=== PATIENT | male | born 1960 | race Caucasian/White ===

== ENCOUNTER 2018-05-07 01:36 | Emergency (ER) | payer OTHER ==
--- NOTE | 2018-05-07 02:53 | EDPHYS ---
Physician Documentation [facility] Name: Trace Chris Jr Age: 58 yrs Sex: Male : 1960 Arrival Date: 05/07/2018 Time: 01:49 Bed 20 Private MD: ED Physician Roshan Peralta HPI: 05/07 02:55 This 58 yrs old Male presents to ER via Ambulatory with complaints of cp Toothache. 02:55 The patient presents with pain. The problem is located in the right upper jaw. Onset: cp The symptoms/episode began/occurred gradually. Duration: The symptoms are continuous, and are steadily getting worse. 02:55 Associated signs and symptoms: Pertinent positives: nausea, pain, Pertinent negatives: cp anorexia, chills, fever, inability to eat, vomiting. 02:55 Severity of symptoms: in the emergency department the symptoms are unchanged, despite cp home interventions. Historical: - Allergies: 02:06 No Known Allergies; aa1 - Home Meds: 02:06 None [Active]; aa1 - PMHx: 02:06 None; aa1 - PSHx: 02:06 back sx; aa1 - Immunization history:: Flu vaccine is up to date. - Social history:: Smoking status: Patient uses tobacco products, smokes one-half pack cigarettes per day. - Ebola Screening: : No symptoms or risks identified at this time. ROS: 02:55 Constitutional: Negative for body aches, chills, fever, poor PO intake. cp 02:55 Eyes: Negative for injury, pain, redness, and discharge. cp 02:55 ENT: Positive for dental pain, right upper jaw pain, Negative for ear pain, rhinorrhea, sinus pain, sore throat, difficulty swallowing, difficulty handling secretions, hoarseness. 02:55 Neck: Negative for pain with movement, pain at rest, stiffness, tenderness. 02:55 Cardiovascular: Negative for chest pain, palpitations. 02:55 Respiratory: Negative for cough, shortness of breath, wheezing. 02:55 Abdomen/GI: Positive for nausea, Negative for abdominal pain, vomiting, diarrhea, constipation. 02:55 Back: Negative for pain at rest, pain with movement. 02:55 Skin: Negative for cellulitis, rash. 02:55 Neuro: Negative for altered mental status, headache, weakness. 02:55 All other systems are negative. Exam: 02:55 Head/Face: Normocephalic, atraumatic. cp 02:55 Constitutional: The patient appears in no acute distress, alert, awake, non-toxic, well developed, well nourished. 02:55 Eyes: Periorbital structures: appear normal, Conjunctiva: normal, no exudate, no injection, Sclera: no appreciated abnormality, Lids and lashes: appear normal, bilaterally. 02:55 ENT: External ear(s): are unremarkable, Ear canal(s): are normal, clear, TM's: dullness, bilaterally, Nose: is normal, Mouth: Lips: moist, Oral mucosa: moist, Posterior pharynx: is normal, airway is patent, no erythema, no exudate, Dental exam: abscess, is not appreciated, dental caries, that is severe, diffusely, fractured teeth are noted, diffusely, missing teeth, diffusely, pain, that is moderate, specifically in the right upper jaw, Voice: is normal. 02:55 Neck: ROM/movement: is normal, is supple, without pain, no range of motions limitations, no meningismus, no nuchal rigidity, Lymph nodes: no appreciated lymphadenopathy. 02:55 Chest/axilla: Inspection: normal, Palpation: is normal, no crepitus, no tenderness. 02:55 Cardiovascular: Rate: normal, Rhythm: regular. 02:55 Respiratory: the patient does not display signs of respiratory distress, Respirations: normal, no use of accessory muscles, no retractions, no splinting, no tachypnea, labored breathing, is not present, Breath sounds: are clear throughout, no decreased breath sounds, no stridor, no wheezing. 02:55 Abdomen/GI: Inspection: abdomen appears normal. 02:55 Skin: cellulitis, is not appreciated, no rash present. Vital Signs: 02:06 BP 163 / 92; Pulse 80; Resp 18; Temp 97.8; Pulse Ox 100% on R/A; Weight 76.2 kg; Height aa1 5 ft. 6 in. (167.64 cm); Pain 8/10; 02:27 BP 143 / 87; Pulse 75; Resp 17; Pulse Ox 98% on R/A; mt 03:05 BP 142 / 86; Pulse 82; Resp 16; Pulse Ox 99% ; ao 02:06 Body Mass Index 27.12 (76.20 kg, 167.64 cm) aa1 MDM: 01:56 Patient medically screened. cp 02:50 Differential diagnosis: dental caries, dental abscess, pericoronitis, aphthous ulcers, cp gingivostomatitis. 02:52 Data reviewed: vital signs, nurses notes, and as a result, I will discharge patient. cp 02:52 Counseling: I had a detailed discussion with the patient and/or guardian regarding: the cp historical points, exam findings, and any diagnostic results supporting the discharge/admit diagnosis, the need for outpatient follow up, maxillary/facial surgery, to return to the emergency department if symptoms worsen or persist or if there are any questions or concerns that arise at home. Response to treatment: the patient's symptoms have mildly improved after treatment, and as a result, I will discharge patient. Administered Medications: 02:55 Drug: Zofran 4 mg Route: PO; ao 03:04 Follow up: Response: Medication administered at discharge. ao 02:55 Drug: Ibuprofen 800 mg Route: PO; ao 03:04 Follow up: Response: Medication administered at discharge. ao 02:55 Drug: Clindamycin 300 mg Route: PO; ao 03:04 Follow up: Response: Medication administered at discharge. ao Disposition: 06:04 Co-signature as Attending Physician, Roshan Peralta MD. rn Disposition: 05/07/18 02:52 Discharged to Home. Impression: Jaw pain - Right upper. - Condition is Stable. - Discharge Instructions: Dental Caries, Adult, Dental Pain. - Prescriptions for Anaprox DS 550 mg Oral Tablet - take 1 tablet by ORAL route every 12 hours As needed; 20 tablet. Clindamycin HCl 300 mg Oral Capsule - take 1 capsule by ORAL route every 6 hours for 10 days; 40 capsule. - Medication Reconciliation Form, Thank You Letter, Antibiotic Education, Prescription Opioid Use form. - Follow up: Fede Conner DDS; When: 2 - 3 days; Reason: Recheck today's complaints. - Problem is an ongoing problem. - Symptoms have improved. Signatures: Micaela Vazquez RN RN aa1 Roshan Peralta MD MD rn Page, Corey, PA PA cp Ortiz, Alex RN RN ao Corrections: (The following items were deleted from the chart) 03:07 02:52 05/07/2018 02:52 Discharged to Home. Impression: Jaw pain - Right upper. ao Condition is Stable. Forms are Medication Reconciliation Form, Thank You Letter, Antibiotic Education, Prescription Opioid Use. Follow up: Fede Conner; When: 2 - 3 days; Reason: Recheck today's complaints. Problem is an ongoing problem. Symptoms have improved. cp
--- NOTE | 2018-05-07 02:53 | ER ---
Nurse's Notes [facility] Name: Trace Chris Jr Age: 58 yrs Sex: Male : 1960 Arrival Date: 05/07/2018 Time: 01:49 Bed 20 Private MD: Diagnosis: Jaw pain-Right upper Presentation: 05/07 02:03 Presenting complaint: Patient states: toothache for several days. States, "It hurts so aa1 bad that it's making me sick at my stomach.". Transition of care: patient was not received from another setting of care. Onset of symptoms was May 03, 2018. Risk Assessment: Do you want to hurt yourself or someone else? Patient reports no desire to harm self or others. Initial Sepsis Screen: Does the patient meet any 2 criteria? No. Patient's initial sepsis screen is negative. Does the patient have a suspected source of infection? Yes: Skin breakdown/wound. Care prior to arrival: None. 02:03 Method Of Arrival: Ambulatory aa1 02:03 Acuity: VICTORINO 4 aa1 Triage Assessment: 02:31 EENT: Reports Toothache. ao Historical: - Allergies: 02:06 No Known Allergies; aa1 - Home Meds: 02:06 None [Active]; aa1 - PMHx: 02:06 None; aa1 - PSHx: 02:06 back sx; aa1 - Immunization history:: Flu vaccine is up to date. - Social history:: Smoking status: Patient uses tobacco products, smokes one-half pack cigarettes per day. - Ebola Screening: : No symptoms or risks identified at this time. Screenin:31 Abuse screen: Denies threats or abuse. Denies injuries from another. Nutritional ao screening: No deficits noted. Tuberculosis screening: No symptoms or risk factors identified. Fall Risk None identified. Assessment: 02:29 General: Appears in no apparent distress. comfortable, Behavior is calm, cooperative, ao appropriate for age. Pain: Complains of pain in Toothache Pain does not radiate. Pain currently is 8 out of 10 on a pain scale. Neuro: Level of Consciousness is awake, alert, obeys commands, Oriented to person, place, time, situation, Appropriate for age Moves all extremities. Full function Speech is normal, Facial symmetry appears normal. Cardiovascular: Capillary refill < 3 seconds Patient's skin is warm and dry. Respiratory: Airway is patent Respiratory effort is even, unlabored, Respiratory pattern is regular, symmetrical, Breath sounds are clear bilaterally. GI: Abdomen is obese. : No signs and/or symptoms were reported regarding the genitourinary system. EENT: No signs and/or symptoms were reported regarding the EENT system. Derm: Skin is pink, warm \\T\\ dry. normal. Musculoskeletal: Circulation, motion, and sensation intact. Range of motion: intact in all extremities. 03:05 Reassessment: DC instructions given to patient. Patient agree to follow up with PCP. ao Vital Signs: 02:06 BP 163 / 92; Pulse 80; Resp 18; Temp 97.8; Pulse Ox 100% on R/A; Weight 76.2 kg; Height aa1 5 ft. 6 in. (167.64 cm); Pain 8/10; 02:27 BP 143 / 87; Pulse 75; Resp 17; Pulse Ox 98% on R/A; mt 03:05 BP 142 / 86; Pulse 82; Resp 16; Pulse Ox 99% ; ao 02:06 Body Mass Index 27.12 (76.20 kg, 167.64 cm) aa1 ED Course: 01:49 Patient arrived in ED. es 01:56 Ralph Jones PA is PHCP. cp 01:56 Roshan Peralta MD is Attending Physician. cp 02:04 Triage completed. aa1 02:06 Arm band placed on right wrist. aa1 02:29 Josr Amaro, VIKASH is Primary Nurse. ao 02:31 Patient has correct armband on for positive identification. Pulse ox on. NIBP on. ao 02:52 Fede Conner DDS is Referral Physician. cp 03:05 No provider procedures requiring assistance completed. Patient did not have IV access ao during this emergency room visit. Administered Medications: 02:55 Drug: Zofran 4 mg Route: PO; ao 03:04 Follow up: Response: Medication administered at discharge. ao 02:55 Drug: Ibuprofen 800 mg Route: PO; ao 03:04 Follow up: Response: Medication administered at discharge. ao 02:55 Drug: Clindamycin 300 mg Route: PO; ao 03:04 Follow up: Response: Medication administered at discharge. ao Outcome: 02:52 Discharge ordered by . cp 03:06 Discharged to home ambulatory. ao 03:06 Condition: stable 03:06 Discharge instructions given to patient, Instructed on discharge instructions, follow up and referral plans. Demonstrated understanding of instructions, follow-up care, medications, Prescriptions given X 2. 03:07 Patient left the ED. ao Signatures: Micaela Vazquez RN RN aa1 Diamond Jaquez Corey, PA PA cp Ortiz, Alex, RN RN [facility]
[2018-05-07] MEDS ORDERED: ONDANSETRON 4 MG (ODT) TAB ONE (03:04)
[2018-05-07] MEDS ORDERED: CLINDAMYCIN HCL 150 MG CAP ONE (03:04)
[2018-05-07] MEDS ORDERED: IBUPROFEN 400 MG TAB ONE (03:04)
== END 2018-05-07 03:07 | disposition home or self-care (01) ==
LOC: ER 01:36
DX: R68.84 Jaw pain (principal); F17.210 Nicotine dependence, cigarettes, uncomplicated
CPT/HCPCS: 99283